=== PATIENT | female | born 1985 | race Two or more races ===

== ENCOUNTER 2022-10-19 09:26 | Emergency (ER) | payer OTHER ==
[~2022-10-19] VITALS: Ht 160 cm; Wt 64.9 kg
--- NOTE | 2022-10-19 09:57 | NUR ---
DR Granda at the bedside for MSE.
--- NOTE | 2022-10-19 10:09 | NUR ---
Placed a call to [facility] per Dr Granda request since pt stated she is homeless and need resources.
--- NOTE | 2022-10-19 10:14 | NUR ---
[facility] speaking w/ PT.
--- NOTE | 2022-10-19 10:20 | NUR ---
Pt denies suecidal/homosidal ideation.
--- NOTE | 2022-10-19 10:20 | NUR ---
Pt expressed to Danni about her "hearing voices" and would like to be admitted to a psych facility. Dr Granda is aware.
--- NOTE | 2022-10-19 10:24 | NUR ---
Pt out of ER for Ct scan.
--- NOTE | 2022-10-19 10:35 | NUR ---
Pt back from Ct, blood draw in progress.
[2022-10-19 10:53] LABS: *BILIRUBIN,URIN NEGATIVE (NEGATIVE); *BLOOD, URINE NEGATIVE (NEGATIVE); *CLARITY,URINE CLEAR (CLEAR); *KETONES,URINE NEGATIVE (NEGATIVE); *UROBILINOGEN,URINE 0.2 E.U./dl (NORMAL); LEUKOCYTE ESTERASE ,URINE TRACE (NEGATIVE); NITRITE, URINE POSITIVE (NEGATIVE); PH,URINE 5.5 (5.0-8.0); UGLUCOSE NEGATIVE (NEGATIVE)
[2022-10-19 10:54] LABS: HEMATOCRIT 31.8 % (31.2-41.9); MEAN CORPUSCULAR HEMOGLOBIN 23.8 uug (24.7-32.8); MEAN CORPUSCULAR VOLUME 77.2 fL (75.5-95.3); PLATELET COUNT (AUTO) 137 K/uL (179-408)
[2022-10-19 10:54] LABS: *COLOR,URINE LIGHT YELLOW (YELLOW)
[2022-10-19 11:08] LABS: BACTERIA,URINE MANY /HPF (NONE SEEN); RBC,URINE 0-3 /HPF (0-3); SQUAMOUS EPITHELIAL CELL,UR MODERATE /HPF (NONE SEEN)
[2022-10-19 11:12] LABS: *AMPHETAMINE, URINE POSITIVE (NEGATIVE); *CANNABINOID, URINE NEGATIVE (NEGATIVE); *COCCAINE, URINE NEGATIVE (NEGATIVE); *PHENCYCLIDINE SCREEN,URINE NEGATIVE (NEGATIVE)
[2022-10-19 11:12] LABS: ACETAMINOPHEN < 2.0 ug/mL (10-30); ALANINE AMINOTRANSFERASE 12 U/L (14-59); ALKALINE PHOSPHATASE 64 U/L (50-136); ASPARTATE AMINOTRANSFERASE 10 U/L (15-37); BILIRUBIN,DIRECT 0.1 mg/dL (0.0-0.2); BILIRUBIN,TOTAL 0.3 mg/dL (0.2-1.0); CARBON DIOXIDE 27 mmol/L (21-32); CHLORIDE 106 mmol/L (98-107); CREATININE 0.7 mg/dL (0.6-1.3); POTASSIUM 3.5 mmol/L (3.5-5.1); TOTAL PROTEIN, SERUM 6.2 g/dL (6.4-8.2); UREA NITROGEN, BLOOD 23 mg/dL (7-18)
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
--- NOTE | 2022-10-19 11:23 | NUR ---
[employer] provided, pt ate w/ good appettite. Resting in bed.
[2022-10-19 11:33] VITALS: O2SAT 99
--- NOTE | 2022-10-19 12:30 | NUR ---
Initial pt's clinical faxed to [facility] intake, Prashant.
--- NOTE | 2022-10-19 13:35 | NUR ---
Faxed completed pt's clinicals to [facility] intake.
--- NOTE | 2022-10-19 14:30 | NUR ---
Pt signed consent for transfer.
--- NOTE | 2022-10-19 14:35 | NUR ---
Report given to Solomon PAEZ, at [facility]. Called AMPrakash for [facility] 30 min.
--- NOTE | 2022-10-19 15:00 | NUR ---
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 All belongings sent w/ pt. [facility] [employer]
== END 2022-10-19 15:02 | disposition short-term general hospital (02) ==
LOC: ER 09:26
DX: F28 Other psychotic disorder not due to a substance or known physiological condition (principal); F15.10 Other stimulant abuse, uncomplicated; R10.2 Pelvic and perineal pain; Z59.00 Homelessness unspecified; Z20.822 Contact with and (suspected) exposure to COVID-19
CPT/HCPCS: 36415; 70450; 72125; 85025; A4663; G0480